=== PATIENT | male | born 1990 | race Caucasian/White ===

== ENCOUNTER 2025-05-26 12:12 | Emergency (ER) | payer MEDICAID ==
[~2025-05-26] VITALS: Ht 167.6 cm; Wt 84.0 kg
[2025-05-26 12:45] VITALS: BP 128/89; PULSE 77; RESP 18; TEMP 98.5; O2SAT 99
[2025-05-26] MEDS: LIDOCAINE 1% 10 ML VIAL SQ ONE (14:07)
== END 2025-05-26 14:34 | disposition home or self-care (01) ==
LOC: EMS 12:12
DX: S61.512A Laceration without foreign body of left wrist, initial encounter (principal); Z90.49 Acquired absence of other specified parts of digestive tract; W26.8XXA Contact with other sharp object(s), not elsewhere classified, initial encounter; Y93.89 Activity, other specified; Y92.89 Other specified places as the place of occurrence of the external cause; Y99.8 Other external cause status
CPT/HCPCS: 99282; 12002; J3490